=== PATIENT | female | born 1950 | race Caucasian/White ===

== ENCOUNTER → 2021-08-04 00:01 | Emergency (ER) | payer OTHER, BC ==
[~2021-08-04] VITALS: Ht 157.5 cm; Wt 84.8 kg
[~2021-08-04 00:01] MED LIST: ASA81BEC PO; ATORVASTATIN CA80 MG PO; COREG12.5 MG PO; FLOMAX0.4 MG PO; FLONASE 0.05%50 MCG NASAL; GABAPENTIN100 MG PO; IPRAT-ALBUT 0.5-3 ML INH; PROAIR HFA8.5 GM INH; SEROQUEL 25 MG25 M1 PO; SERTRALINE HCL100 MG PO; VITAMIN B-121000 MC2 IM
[2021-08-04 18:07] LABS: HEMOGLOBIN 9.8 gm/dL (12.0-15.0); MCH 29.7 pg (26.0-34.0); MCHC 33.7 g/dL (28.0-37.0); MCV 88.3 fL (80.0-100.0); RBC 3.29 mil/uL (4.20-5.00); RDW 14.4 % (10.5-14.5); WBC 11.4 thou/uL (4.0-11.0)
[2021-08-04 18:27] LABS: CALCIUM 8.3 mg/dL (8.5-10.1); CREATININE 0.8 mg/dL (0.6-1.0); POTASSIUM 3.7 mmol/L (3.5-5.1)
[2021-08-04 23:26] VITALS: BP 141/45
== END ==
LOC: ER 00:01
PROVIDERS: Emergency Medicine
DX: F29 Unspecified psychosis not due to a substance or known physiological condition (principal); J44.9 Chronic obstructive pulmonary disease, unspecified; I10 Essential (primary) hypertension; E11.9 Type 2 diabetes mellitus without complications; I25.10 Atherosclerotic heart disease of native coronary artery without angina pectoris; M79.7 Fibromyalgia; M19.90 Unspecified osteoarthritis, unspecified site; Z79.82 Long term (current) use of aspirin; Z79.51 Long term (current) use of inhaled steroids; Z79.899 Other long term (current) drug therapy; Z79.891 Long term (current) use of opiate analgesic; Z88.0 Allergy status to penicillin; Z88.8 Allergy status to other drugs, medicaments and biological substances; Z88.6 Allergy status to analgesic agent; Z88.1 Allergy status to other antibiotic agents; Z91.041 Radiographic dye allergy status

== ENCOUNTER 2021-08-04 18:58 | Inpatient (IN) | payer OTHER, BC ==
[~2021-08-04] VITALS: Ht 157.5 cm; Wt 90.3 kg
[2021-08-05] VITALS: BP 137/57
--- NOTE | 2021-08-05 02:30 | NUR ---
Pt was admitted to [facility] on 08/04 at 2338. Pt was cooperative with admission process. Vital signs were obtained and within normal limits. Skin assessment was performed; results were unremarkable. During admission interview pt was hyperverbal, overinclusive, and tangential. Pt was mostly foused on somatic complaints. Pt stated she had a DPOA, but Dr. Gee notified RN that paperwork for DPOA has not been verified and pt would need to sign consent for treatment.
[2021-08-05 06:09] LABS: CHOLESTEROL 150 mg/dL (<200); HDL CHOLESTEROL 52 mg/dL (>40); LDL CHOLESTEROL 81 mg/dL (<100); TC:HDL 2.9 Ratio (Not establshd); TRIGLYCERIDE 86 mg/dL (<150); VLDL 17 mg/dL (<40)
[2021-08-05 06:13] LABS: SERUM ASSESSMENT Clear
[2021-08-05 09:36] VITALS: BP 149/73
[2021-08-05 11:56] VITALS: BP 149/73
--- NOTE | 2021-08-05 17:17 | NUR ---
Magnolia was alert and oriented x4 this shift, although when asked specific questions pt goes into much detail that it is difficult to understand pt's thought process at first, but she eventually circles around to the correct answer. Her thought process is tangential and has flight of ideas. She expressed grief regarding the loss of her late from October of 2013 and states she never grieved properly and became tearful when discussing this. She met with the Mutuel [employer] and filled out DPOA paperwork, listing her son Adalberto as her DPOA. She expressed wishes to meet her latest Terrell, in [facility], but stated "I'm Bahai so I would never do that to myself because I believe I wouldn't go to [facility]". She stayed isolative to her room and made some paranoid comments and stated "I know I'm paranoid", regarding other pt's looking at her a certain way but pt eventually changed and came to the dayroom and watched football which pt really enjoyed. Pt has some edema to her BLE and was educated to keep her feet elevated; pt is currently sitting in a go chair with her feet elevated. Pt ambulated with a walker this shift, without difficulty. She was calm, cooperative, and pleasant with staff and shared a lot of her life stories. Pt did not voice any physical complaints this shift, will continue to monitor.
[2021-08-05 18:29] VITALS: BP 108/46
--- NOTE | 2021-08-06 05:30 | NUR ---
Assumed care of patient at 1900. Pt calm et cooperative this shift. Took medications whole without difficulty. VSWNL. Health assessment with no abnormalities other than noted previously. Pt c/o fluid retention et "feeling pressure" in BLE et feels that she is unable to urinate completely. Bladder scan done with no residual urine noted in bladder at present time. Pt very hyperverbal and tangential this shift. Denies SI/HI/AVH at present time. BS 138 at 1855. Ambulates with assistance of walker with steady gait. Currently resting in bed with eyes closed. Will continue to monitor per unit protocol.
[2021-08-06 07:11] LABS: GLYCOHEMOGLOBIN (HGB A1C) 6.4 % (4.8-5.6)
[2021-08-06 07:30] VITALS: BP 124/46
[2021-08-06 11:53] VITALS: BP 124/46
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
--- NOTE | 2021-08-06 14:56 | NUR ---
Check in with patient. Patient was in room and expressed gratitude as she was able to walk independently. The patient was well groomed. The patient indicated being here due to having a nuerology appointment and the doctors expressing that she was in need of further therapy for her hands. The patient reported being born and raised in [place], [place] and the entire family moving to [place] in 1998. The patient has a younger sister (Shannen), an older sister (Brittany) and a step-brother (Don). The patient became emotional talking about not hearing from Don for Thanksgiving as she felt that was an indicator of him not doing well. 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 The patient graduated from high school and reports she took several college courses and probably has enough credits for a degree in accounting and business. The patient is . She again became tearful when discussing her late who passed in 2013 due to complications from a double hernia surgery. There was no history of abuse. The patient has a good relationship with her son, Adalberto. He is very protective of her. The patient is not as close to her youngest son, Brad. He has been diagnosed with bipolar. The two barely talk; however, he would come to the home and take a shower when he wasn't able to at the truck stations. He works as an over the road warehouse guard and reportedly resides out of the truck. For fun, the patient likes to sew. The patient expressed wanting to be able to return home. She acknowledges not having any live in support but feels she would be able to appropriately care for herself. The patient did express the desire to have PT to assist with walking if she is going to be living alone.
[2021-08-06 19:35] VITALS: BP 99/45
--- NOTE | 2021-08-06 21:33 | NUR ---
08/06/21 assumed care @ 1900, A&Ox4, HRRR, Breath sounds CTA bilat, ABD N x4Q bruising on ABD consisitent with abd injections for blood thinner, patient confirms this protocol, from her previous hospital stay. Bruises on AC bilat and back of hand and forearm on the left which also appear to be from IV or lab draws. Toilets self, urine output only is noted. Reports no bm today. Chats about psych meds that she wants to be on but is not, and then denies that she wants to be on it. Education provided that the is the one to give orders for psychiatric medication. Bed in low position, feet elevated as per the patient's request, will continue to monitor for safety and comfort.
[2021-08-07 06:00] LABS: ALBUMIN 2.7 g/dL (3.4-5.0); CALCIUM 8.6 mg/dL (8.5-10.1); CREATININE 1.1 mg/dL (0.6-1.0); PHOSPHORUS 3.9 mg/dL (2.5-4.9); POTASSIUM 3.1 mmol/L (3.5-5.1)
[2021-08-07 08:40] VITALS: BP 139/64
--- NOTE | 2021-08-07 10:15 | NUR ---
Assess due to new admit to [facility] with paranoia, hallucinations. PHM of DM and COPD. BG in excellent control, A1C 6.4, lipids wnl on statin. No reported wt loss, BMI 34.5. Carb control diet order and eating >75% most meals. Low nutrition risk
--- NOTE | 2021-08-07 14:51 | NUR ---
Alert and orientated X4. Denies SI/HI. Wants to be weaned off psych meds. Initially resistant to taking psych meds stating that her gave her xanax from Halloween through [facility] d/t anxiety/depression r/t to loss. Hyperverbal and fussy but remaining calm. Compliant with meds after multiple suggestions to discuss with Dr. Gee and that I would ask Dr. Gee to speak with her. Multiple requests to change wrist band. Repetitive stories, resistant to redirection. Breath sounds clear. Reg HR auscultated. Color pink with brisk capillary refill and palpable peripheral pulses. Minimal edema in feet. Brief dry. Active bowel sounds over soft, rounded abdomen. States last BM was 2 days ago.
[2021-08-07 19:30] VITALS: BP 111/47
[2021-08-07 19:47] VITALS: BP 111/47
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
[2021-08-08 02:06] LABS: GLYCOHEMOGLOBIN (HGB A1C) 6.5 % (4.8-5.6)
[2021-08-08 09:00] VITALS: BP 120/57
[2021-08-08 13:38] LABS: HEMATOCRIT 29.7 % (37.0-47.0)
[2021-08-08 13:39] LABS: HEMOGLOBIN 9.7 gm/dL (12.0-15.0)
--- NOTE | 2021-08-08 17:43 | NUR ---
"MARLYN and Dr. Roach met with the Pt concerning discharge planning. The PT stated she needed to discharge to [facility] for rehab. The Pt states that this was the plan prior to her being admitted to [facility]. The Pt stated she was told ther where holding a bed for her. MARLYN was unable to verify this information, MARLYN did call [facility], left a message for a return call. As of this not MARLYN has not recieved call from [facility] on the matter. MARLYN and Dr. Roach were also able to speak with the Pt's son, Adalberto [phone]. Adalberto informed the Pt does have acess to her home. Pt is able to use the [employer] mentor [employer] invest[employer] door code to enter the home. Adalberto shared concerns that the Pt's home was not safe due to stairs and he felt the Pt needed rehab or someone in the home to assist. A family meeting was set for 08/09/2021 @ 1500. MARLYN will continue to follow"
[2021-08-08 19:30] VITALS: BP 113/41
[2021-08-08 19:34] VITALS: BP 113/41
--- NOTE | 2021-08-08 22:52 | NUR ---
08/08/21 @ 1900 in her room in bed , awakens to voice, Cooperated with assessment, HRRR, Lungs CTA bilat, ABD Nx4Q. Had a large BM, but patient did not follow the instructions to use the hat to collect BM. Will monitor more closely in hopes of collecting sample for Occult blood. A&Ox4, although gives the date as Aug 09, 2021, and that is tomorrows date. +1Edema noted to bilat lower extremities, pedal pulses present. Denies SI/HI, Denies depression, reports has anxiety over the continuing changing guidelines for covid safety. In bed with bed in low position and locked, will continue to round q12 minutes for patient safety and comfort.
[2021-08-09 06:27] LABS: CALCIUM 8.3 mg/dL (8.5-10.1); CREATININE 0.9 mg/dL (0.6-1.0); MAGNESIUM 1.5 mg/dL (1.8-2.4); POTASSIUM 4.5 mmol/L (3.5-5.1)
--- NOTE | 2021-08-09 09:28 | NUR ---
08-09-2021--799--Spoke shortly to patient and told her I would come back to talk to he later. She can talk non-stop. Explained I needed to make a phone call and she stated "do you promise you'll come back?". I told her "yes". 08-09-2021--849--Went back to talk to patient. She stated "You came back." I told her "of Course I did. I told you I would." Patient can talk about almost any topic (even when you change the subject in the middle of her talking about one topic)--Non--stop. Once again I had to use an excuse to stop conversation. And again she requested assurance that I would ome back and talk to her later. Patient appears very insecure and requires verbal reassurance that things will occur. Patient also told me she has never been dx'd with bipolar and she really feels a lot better now and is ready to get out.
--- NOTE | 2021-08-09 10:12 | NUR ---
PATIENT CARE ASSUMED AT 0700, PATIENT SITTING ON THE LUCITA CHAIR, ALERT AND ORIENTED X3, PATIENT IS CALM AND PLEASANT WITH CARE, TOOK MEDICATION WHOLE WITHOUT ANY PROBLEM, PATIENT LIKE TO KNOW ALL THE NAME OF MEDICATION TAKEN AND WHAT THERE ARE FOR. ASSESSMENT COMPLETED WITH ACTIVE BOWEL SOUND, LUNGS CLEAR, REG HR, SKIN INTACT, +1 EDEMA ON THE LEGS, PATIENT AMBULATE WITH A WALKER, ATTENDS GROUPS AND PATICIPATED, ABLE TO VERBALIZE NEEDS, FALL PRECAUTION IN PLACE, PATIENT DENIES SI/HI, WILL CONTINUE TO MONITOR PATIENT FOR SAFETY AND BEHAVIOU.
--- NOTE | 2021-08-09 17:33 | NUR ---
MARLYN and Dr. Gee participated in a family meeting with the Pt and her son/DPOA, Adalberto. During the meeting the Pt was hyperverbal and manic. The Pt was cried several times through out the meeting. MARLYN attempted to redirect the Pt several times back to discharge planning. The Pt was unable to be redirected. THe meeting was ended. Another family meeting will be scheduled for early next week
[2021-08-09 19:04] VITALS: BP 105/41
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
[2021-08-10 08:49] VITALS: BP 138/46
[2021-08-10 10:19] VITALS: BP 138/68
--- NOTE | 2021-08-10 12:06 | NUR ---
RESUMMED CARE FROM OVERNIGHT SHIFT THIS AM, PATIENT ALERT ORIENTED TIMES 4. PATIENT ATE BREAKFAST TOOK MEDICATION WITHOUT INCIDENCE. PATIENT DENIES SI/HI/AH/VH AT PRESENT. PATIENTS ABDOMEN SOFT BOWEL SOUNDS PRESENT, PATIENTS LUNGS CLEAR. PATIENT CALM COOPERATIVE PARTICIPATES IN GROUPS; WILL CONTINUE TO MONITOR PATIENT FOR SAFETY AND BEHAVIORS.
--- NOTE | 2021-08-10 13:48 | NUR ---
RT Progress Note- Magnolia has been active in both the milieu and recreation therapy groups since her admission. She enjoys interacting with peers and socializing. She continues to display pressured and hyper active speech; manic like behaviors but has not shown aggression or agitation. RECEIVER DISPATCHER will continue to encourage patient participation.
[2021-08-10 17:23] LABS: HEMATOCRIT 26.3 % (37.0-47.0); HEMOGLOBIN 8.9 gm/dL (12.0-15.0); MCHC 33.9 g/dL (28.0-37.0); MCV 88.5 fL (80.0-100.0); RBC 2.98 mil/uL (4.20-5.00); RDW 14.4 % (10.5-14.5); WBC 7.8 thou/uL (4.0-11.0)
[2021-08-10 17:41] LABS: ALBUMIN 2.6 g/dL (3.4-5.0); CALCIUM 8.5 mg/dL (8.5-10.1); POTASSIUM 4.3 mmol/L (3.5-5.1); TOTAL BILIRUBIN 0.4 mg/dL (0.2-1.0); TOTAL PROTEIN 5.9 g/dL (6.4-8.2)
[2021-08-10 17:42] LABS: APTT 25.4 Seconds (24.5-32.8); D-DIMER 0.47 ug/mLFEU (0.19-0.50); INR 0.93; PROTIME 10.2 Seconds (10.5-12.1)
[2021-08-10 19:04] VITALS: BP 96/46
--- NOTE | 2021-08-11 05:52 | NUR ---
Assumed care of patient at 1900. Pt calm et cooperative this shift albeit hyperverbal with the staff most of shift. Took medications whole without difficulty. Isolated in room most of shift. Ambulates to et from the restroom ad cecilio with assistance of walker with steady gait. Pt c/o right knee pain this shift et was given Tylenol 650mg PRN at 0130. Reassessment found the patient resting with eyes closed. Patient denies SI/HI/AVH at present time. Patient had moderate soft bowel movement which was collected for occult blood analysis per orders. Patient currently resting in bed with eyes closed. Will continue to monitor per unit protocol.
--- NOTE | 2021-08-11 09:42 | NUR ---
Alert and orientated X4. Calm, cooperative and compliant. Denies SI/HI. Breath sounds clear t/o. Reg HR auscultated. Color pale pink with brisk capillary refill and palpable peripheral pulses. Minimal pedal edema. Large amt yellow urine per toilet. Active bowel sounds over soft, rounded abdomen. States she had BM yesterday. Ambulates with regular, steady gait with walker. Currently participating in group, no s/o distress.
[2021-08-11 10:19] VITALS: BP 135/48
[2021-08-11 17:00] VITALS: BP 115/57
[2021-08-11 21:17] VITALS: BP 117/73
--- NOTE | 2021-08-12 04:06 | NUR ---
Magnolia was alert and oriented x4 this shift. She presented in her room at the start of the shift and remained in her room throughout the night. She expressed she was tired and was going to go to bed early, but was restless throughout the night and woke up multiple times. She was calm, cooperative, and pleasant, although hyperverbal at times and would tell very detailed stories in the middle of the night when she would wake up. She was medication compliant, without difficulty. She denied SI/HI/MARY and remained safe throughout the night. She woke up c/o pain to her right leg and used her ice pack, then about an hour later asked for tylenol; tylenol given at 0100 with effectiveness. Pt reached her fluid restriction of 1200 mL with HS medications. She was provided with mouth swabs and some water so that pt could swab her mouth if it became try throughout the night. Pt has been compliant with her fluid restriction and appears understanding of the situation. Will continue to monitor.
[2021-08-12 09:40] VITALS: BP 121/48
--- NOTE | 2021-08-12 12:40 | NUR ---
Assumed pt care at 0700. pt is alert and oriented x4. Calm and cooperative with care. Assessments completed, vss. active bowel sound. Denies si/hi, denies pain. Took meds whole, no difficulty noted. Ambulates with a walker. Continent of bowel and bladder at this time. Makes needs known to staff. PT is high fall risk. Fall precaution in place. Med education completed per pt request. Meds administered as scheduled. At this time pt is in the day room socializing. Will continue to monitor.
[2021-08-12 19:43] VITALS: BP 103/44
--- NOTE | 2021-08-13 05:27 | NUR ---
Assumed care of patient at 1900. Pt calm et cooperative this shift. Took medications whole without difficulty. VSWNL. Health assessment with no abnormalities noted at present time. Was given PRN Tylenol, Zofran, et Seroquel this shift with efficacy. Spent early part of shift socializing with peers in dayroom. Pt denies any SI/HI/AVH at present time. Hyperverbal this shift with both staff and peers. Often close to tears when ruminating about past relationships. Currently resting in bed with eyes closed. Will continue to monitor per unit protocol.
[2021-08-13 05:58] LABS: HEMATOCRIT 23.4 % (37.0-47.0); MCHC 34.1 g/dL (28.0-37.0); MCV 88.2 fL (80.0-100.0); RBC 2.66 mil/uL (4.20-5.00); RDW 14.4 % (10.5-14.5); WBC 5.6 thou/uL (4.0-11.0)
[2021-08-13 06:11] LABS: CALCIUM 8.4 mg/dL (8.5-10.1); POTASSIUM 3.2 mmol/L (3.5-5.1)
[2021-08-13 09:29] VITALS: BP 137/56
--- NOTE | 2021-08-13 09:47 | NUR ---
Patient has been in the dayroom all morning. She had a good appetite at breakfast. Patient has been hyperverbal with staff and patients. She has been cooperative this morning. She took her morning medications whole with no difficulty, educated on each medication she recieved. Patient requested to not take her scheduled doce of colace, due to having loose stools. She uses a walker when ambulating, she has been steady. Patient participated in the monring group session. She denies having pain, or thoughts of SI/HI. She is currently in the dayroom watching TV, will continue to monitor for further changes.
[2021-08-13 19:17] VITALS: BP 109/45
--- NOTE | 2021-08-14 01:11 | NUR ---
At onset of restaurant shift leader pt was sitting in day room socializing with a female peer. This shift pt was alert and oriented x3; insight into situation is limited. Pt was hyperverbal and very tangential when speaking with RN. Pt shared that she feels god is punishing her because most of her loved ones are gone, but she is still living. Pt talked about being with her when he passed. Pt was labile during conversation and was tearful. Pt was compliant with medication and vital signs. Pt was observed talking to herself in her room, but pt stated she is talking to god. Fall precautions are in place. Will continue to monitor. Pt complained of feeling "fibromyalgia pain" in her legs. Pt was provided with an ice pack.
[2021-08-14 04:00] LABS: HEMATOCRIT 23.9 % (37.0-47.0); HEMOGLOBIN 7.9 gm/dL (12.0-15.0); MCH 29.3 pg (26.0-34.0); MCHC 33.2 g/dL (28.0-37.0); MCV 88.3 fL (80.0-100.0); RBC 2.71 mil/uL (4.20-5.00); RDW 14.3 % (10.5-14.5); WBC 5.4 thou/uL (4.0-11.0)
[2021-08-14 04:17] LABS: CALCIUM 8.8 mg/dL (8.5-10.1); CREATININE 1.3 mg/dL (0.6-1.0); POTASSIUM 3.4 mmol/L (3.5-5.1)
[2021-08-14 04:18] LABS: % SATURATION 15 % (20-39); IRON 27 ug/dL (50-170); TIBC 176 ug/dL (250-450)
[2021-08-14 04:51] LABS: FOLIC ACID 10.3 ng/mL (8.6-58.9)
[2021-08-14 08:35] VITALS: BP 130/51
--- NOTE | 2021-08-14 09:49 | NUR ---
Followup: remains on SBH. Eating very well. Wt up 10 lb. BG controlled, folate, B12 are wnl. Continues to present at low nutrition risk
[2021-08-14 12:18] VITALS: BP 130/51
--- NOTE | 2021-08-14 16:44 | NUR ---
Magnolia was alert and oriented x4 this shift. She presented as very anxious this morning and became tearful as she was upset that a staff member questioned her regarding her "noodle" that she uses to manager security and safety her utensils. Pt was given reassurance and emotional support as pt was pretty worked up about this and appeared very focused on this, despite reassurance that she did not do anything wrong. Pt's thought process is tangential and she continues to be hyperverbal and very detail oriented. She was labile throughout the day and tearful at times. She denied SI/HI/MARY and remained safe on the unit throughout the day. She was medication compliant, taking pills whole without difficulty. Her last BM was yesterday and due to Hgb trending downward, a new order for an occult stool was placed. A hat was placed in pt's toilet to obtain stool sample but pt has not yet gone since order was placed. Pt's colace was held this morning as pt stated she has been having diarrhea. Pt did not voice any physical complaints this shift and remains on high fall risk precautions as pt has had a recent fall and ambulates using a walker. Will continue to monitor.
[2021-08-14 21:02] VITALS: BP 110/44
--- NOTE | 2021-08-14 23:13 | NUR ---
At onset of audit associate pt was resting awake in bed. This shift pt was alert and oriented x4. Pt was hyperverbal and labile when speaking with staff. Pt easily becomes tearful during interactions. Pt was compliant with vital signs and medications. Pt reported that she did not sleep well last night and did not sleep during the day, so she believes she will sleep well tonight. Pt is aware a occult stool sample is needed. Pt stated she has not had a bowel movement yet to provide sample. Pt denied SI, HI and AVH. During med pass, pt has RN go over each medication. Affect was broad. Pt appeared anxious at times, but overall was pleasant. Fall precautions are in place. Will continue to monitor.
[2021-08-15 07:20] VITALS: BP 113/39
[2021-08-15 11:23] VITALS: BP 118/45
[2021-08-15 12:14] LABS: HEMATOCRIT 27.1 % (37.0-47.0)
--- NOTE | 2021-08-15 14:23 | NUR ---
Alert and orientated X4. Calm, cooperative and compliant. Denies SI/HI. Hyperverbal at times. Breath sounds clear. Reg HR auscultated. Color pale pink with brisk capillary refill and palpable peripheral pulses. + 1 edema in lower legs. Active bowel sounds over soft, rounded abdomen. Independent with voiding. Ambulates with regular, steady gait with walker. Currently being showered by HIGH LIFT OPERATOR.
--- NOTE | 2021-08-15 15:40 | NUR ---
MARLYN and Dr. Roach participated in phone call to the Pt's DPOA/son, Adalberto. Adalberto informed he has been cleaning out the Pt's home. Adalberto stated that the Pt horded and he wanted to clear it out to make safer for the Pt to return. Bert was informed the Pt did not meet criteria for inpt skilled rehab. It was recommended that the Pt would benifit from assistance in the home from friend, family or home health aide. Bert informed Pt was unable to afford in home assistance and that he lives 3 hours away. Assisted living was discussed. Bert knows that assisted living would not be immidiate but he could talk to the Pt about the matter. Pt will need follow up with a psychiatrist. There were no other questions or concerns during this meeting. A follow up phone call will be held 08/18/2021 @ 1300.
--- NOTE | 2021-08-15 16:36 | NUR ---
Patient care resummed, patient located in bed and was awoken by staff for breakfast. Patient is A&O*4, lung sounds clear;unlabored although diminished in bilateral bases; abdomen is soft, nondistended with bowel sounds present*4; +1 pitting edema in BLE, abdomonal brusing noted, and pale in color. Patient has been calm and cooperative with staff throughout the day, hyperverbal at times, and fixated on past times. Patient on a 1,200mL fluid restriction, V/S hypotensive @ 113/39 at 0800 and 118/45 @ 1115. Patient labs ordered and reviewed. Denies SI/HI/AVH, anxiety, depression, and pain. Patient Is cont. of B&B, presents with a steady gait with walker when ambulating. Fall precautions are in place, will continue to monitior patient for safety and behaviors.
--- NOTE | 2021-08-15 16:54 | NUR ---
SW completed a SLUMS with Pt. Pt scored
[2021-08-15 21:42] VITALS: BP 131/55
--- NOTE | 2021-08-16 04:20 | NUR ---
08-15-21 CARE TRANSFERRED 0 OBSERVED PT SITTING IN DAY ROOM. LATER PT AAOX4, VSS, RR EVEN AND NONLABORED ON RA, LUNGS CLEAR AND DIMINISHED, HT RR, ABD SOFT AND ACTIVE. PT DENIES PAIN AND SI/HI/VAH. PT PRESENTS FUSSY, HYPERVERBAL WITH DISORGANIZED THOUGHTS, BUT HAS REMAINED COOPERATIVE. OBSERVED PT SHUFFLING GAT WITH WALKER, PT BED WAS ADJUSTED FOR COMFORT. PT WILL CONTINUE TO BE MONITOR PER [facility] PROTOCOL.
[2021-08-16 08:26] VITALS: BP 128/44
--- NOTE | 2021-08-16 08:49 | EKG ---
[address] [address] ELECTROCARDIOGRAM REPORT Name: JOSE PETER Room #: [facility] ADM IN M.R.#: [id number] Admission: 08/04/21 Attend Phys: Mart Gee DO Discharge: Date of : 52 Report #: [id number] [facility] Test Date: 2021-08-15 Test Time: 18:33:40 Pat Name: JOSE PETER Department: Room: [facility] Gender: F Labor Crew Supervisor: FSCHFERN : 1950 Requested By: Mart Gee Order Number: [id number] MD: Catrachito Grossman Measurements Intervals [place] Rate: 89 P: 1 NV: 125 QRS: 18 QRSD: 85 T: 55 QT: 355 QTc: 432 Interpretive Statements Sinus rhythm Normal tracing No previous ECG available for comparison Electronically Signed On 08-16-2021 8:49:48 MAGAZINE FILLER by Catrachito Grossman [email or web address] <ELECTRONICALLY SIGNED> By: Catrachito Grossman MD, [facility] 08/16/21 0849 1833 1833 Catrachito Grossman MD, FACC /EPI
--- NOTE | 2021-08-16 17:52 | NUR ---
Referral for SNF faxed to [facility] [place]
--- NOTE | 2021-08-16 17:53 | NUR ---
Patient care resummed, patient in bed resting awhile woken for breakfast. Patient has been calm and cooperative today although hyperverbal with disorginzed thoughts. A&O*4; Lung sounds clear bilaterally although diminshed; abdomen soft;nondistended with bowel sounds present*4; VSS; medication and meal compliant; 1,000ml of fluids given of the 1,200ml restriction. Patients gait noted to be steady with a walker although visualized shuffling today. Patient participated in groups/meals and PT today without complication. Denies SI/HI/AVH, pain, anxiety, and depression. Patient did voice concern about some dizziness when standing; DRY FOLDER CLOTH proceed with Orthostatic V/S: Sitting: BP: 128/44 HR: 94 O2: 94% T: 95.5 Lying: BP: 153/85 HR: 105 Standing: BP: 95/55 HR: 70 Fall precautions are in place will continue to monitior for safety and behaviors.
[2021-08-16 19:38] VITALS: BP 143/48
--- NOTE | 2021-08-16 19:48 | NUR ---
NOTES AND ASSESMENTS REVIEWED FOR 7AM-7PM SHIFT-IN AGREEMENT
--- NOTE | 2021-08-16 22:08 | NUR ---
At onset of business technology analyst pt was sitting in day room, socializing with a female peer. This shift pt was alert and oriented x3. Insight into situation is limited. Pt was compliant with vital signs and medications. RN held colace per pt's request. Pt was overall calm, pleasant and cooperative. During conversation with RN pt stated she was upset because she believes Dr. Gee did not see her today. Pt stated Dr. Gee and her son are working together "to have me permanently put away" in a mental instition. Pt told RN to not tell Dr. Gee she believes this because she does not want her medication increased. Pt denied SI, HI and AVH. Fall precautions are in place. Will continue to monitor.
[2021-08-16 22:41] VITALS: BP 136/48
[2021-08-17 07:30] VITALS: BP 123/63
[2021-08-17 09:36] VITALS: BP 123/63
--- NOTE | 2021-08-17 13:28 | NUR ---
RT Progress Note- Magnolia is consistently present in the milieu and recreation therpay groups and participates well. Magnolia enjoys sharing stories and can talk for long periods of time, requiring refocusing in group settings. Overall her mood has stabilized and she is less labile compared to the common crying spells she was displaying last week. STRAP BUCKLER will encourage patient participation throughout her admission.
[2021-08-17 18:42] VITALS: BP 105/50
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
--- NOTE | 2021-08-18 04:36 | NUR ---
08-17-21 CARE TRANSFERRED 1899 OBSERVED PT SITTING IN DINING ROOM TALKING WITH PEER. LATER PT AAOX4, VSS, RR EVEN AND NONLABORED RA, LUNGS CLEAR AND DIMINISHED, HT RR, ABD SOFT/ACTIVE/NONTENDER. PT DENIES SI/HI AND REPORTS PAIN IN LOWER BACK SCORES 5 ON 0-10 SCAE. PT HYPERVERBAL WITH MULTIPLE DEMANDS BUT HAS BEEN PLEASANT WITH REQUEST, PT COOPERATIVE DURING NURSING ASSESSMENT. DURING MEDICATION ADMIN PT HAD NO DIFFICULTIES TAKING MEDICATION WHOLE WITH WATER. PT BED WAS ADJUSTED FOR COMFORT. UPON REASSESSMENT OF PAIN NOTED PT RESTING WITH EYES CLOSED. PT WILL CONTINUE TO BE MONITOR PER [facility] PROTOCOL.
[2021-08-18 14:50] VITALS: BP 135/50
--- NOTE | 2021-08-18 15:14 | NUR ---
Patient care resummed; patient located in her room resting comfortably. A&O*4 with intermintent confusion, lung sounds clear bilaterally;unlabored, abdomen soft;no distention noted with bowel sounds present*4, ambulates with a walker although gait is unsteady at times; medication/meal compliant; on 1,200mL fluid restriction patient within limits of restriction today; Hyperverbal throughout the day, calm, cooperative and pleasent. VSS; fall precautions in place; Denies SI/HI/AVH, Anxiey, Pain, and depression. Will continue to monitior patient for safety and behaviors.
--- NOTE | 2021-08-18 16:21 | NUR ---
Referral faxed to [facility]
[2021-08-18 19:13] VITALS: BP 112/48
--- NOTE | 2021-08-19 05:50 | NUR ---
Assumed care of pt at 1900. Pt calm et cooperative this shift. Took medications whole without difficulty. Ambulates the halls ad cecilio wth assistance of walker with steady gait. Went to bed early this shift et states that she is "more tired than usual today". VSWNL. Health assessment with no abnormalities noted at present time. PRN Tylenol 650mg given at midnight for generalized pain. Reassessment revealed pt resting with eyes closed. No further c/o for the rest of the noc. Pt denied SI/HI/AVH at present time. Currently resting in bed with eyes closed. Will continue to monitor per unit protocol.
[2021-08-19 09:48] VITALS: BP 120/41
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
[2021-08-19 16:05] VITALS: BP 102/49
[2021-08-19 19:17] VITALS: BP 84/45
--- NOTE | 2021-08-20 05:32 | NUR ---
Assumed care of pt at 1900. Pt calm et cooperative this shift. Took medications whole without difficulty. Ambulates the halls ad cecilio with assistance of walker with steady gait. Spent early part of shift socializing with peers in dayroom. Less hyperverbal than previous encounters with pt. VSWNL. Health assessment with no abnormalities noted at present time. Pt denies SI/HI/AVH at present time. Currently resting in bed with eyes closed. Will continue to monitor per unit protocol.
[2021-08-20 10:21] VITALS: BP 121/50
[2021-08-20 11:50] VITALS: BP 121/50
--- NOTE | 2021-08-20 17:12 | NUR ---
Assumed pt care this morning from overnight shift. Client was in activity area resting and watching tv during this time. Client presented pleasant and talkative during assessment and was oriented 4x. Client denied any anxiety and depression during assessment. Client also denied any visual and audio hallucinations, stating that she has not had those in weeks. Client also denied any suicidal or homicidal intent, stating that she is unsure of why she is asked that question as she has "never been suicidal in [my] life." Bowel sounds were present, with last BM 08/20/21. Lung sounds were clear and slightly diminished- client is on breathing treatments several time a day to help with this. Client did not have any concerns at time of assessment. She voiced some pain shortly after assessment and was given prn tylenol to help with this which provided complete pain relief. At this time, client asked about her son visiting her tomorrow. Client was informed that he son stated that he was out of town until Saturday, but that she would be notified if that changed. Client voiced concerns that she would continue to stay at facility due to son's involvement. Client was assured at this time that family meetings were planned before discharge and that her input would be valued as well. Client had no further concerns at this time. All medications for this shift given and tolerated well. No concerns at this time.
[2021-08-20 20:05] VITALS: BP 104/32
--- NOTE | 2021-08-21 02:22 | NUR ---
PATIENT CARE WAS RESUMED AT 1900. SHEIS ALERT AND ORIENTED X3. LUNGS ARE CLEAR BS ACTIVE X4 QUADS. SHE IS CONTINENT OF B WEL AND BLADER AND SHE WAS RESTING IN BED. SHE TOOK HER MEDS WHOLE. ON FLUID RESTRICTON. SHE DENIES PAINS/SI/AVH/HI. BED IS LOW AND LOCKED.
[2021-08-21 09:06] VITALS: BP 117/48
--- NOTE | 2021-08-21 09:06 | NUR ---
Please indicate amount of fluid restriction needed in pts diet order
--- NOTE | 2021-08-21 09:06 | NUR ---
Followup: eating 100% meals. Note on fluid restriction due to hyponatremia, Na 135 however specific amount not specified. Need to clarify with physician and indicate in pts diet order. Otherwise low nutrition risk
--- NOTE | 2021-08-21 10:12 | NUR ---
TEARFUL DURING AM RT GROUP OTHERWISE CALM/COOPERATIVE-REMAINS MILDLY HYPER VERBAL AND TANGENTIAL. DENIES SI/SH/HI. SOCIAL WITH FEMALE PEER-STRUCTURES FREE TIME READING MAGAZINE OR DOING WORD SEARCHES. GAIT STEADY WITH USE OF ROLLER WALKER.DENIES PAIN/DISCOMFORT
--- NOTE | 2021-08-21 17:32 | NUR ---
Pt has been accepted at [facility] for SNF to home. Discharge was set for 08/22/2021 @ 1100. Pt will be transported via [facility] . SW did inform the Pt of this information. Also the Pt's KEY Noel was informed.
[2021-08-21 20:11] VITALS: BP 132/39
--- NOTE | 2021-08-21 22:57 | NUR ---
PATIENT IN DAY ROOM WATCHING TV. SHE IS AAOX4. CALM AND COOPERATIVE. STATES THAT SHE IS SUPPOSED TO DISCHARGE IN THE AM. SHE IS ABLE TO WALK UNDER HER OWN POWER AND IS STABLE. SHE IS COMPLIANT WITH ALL OF HER MEDICATIONS. DENIES PAIN OR NEEDS. VSS. WENT TO BED AROUND 1999. WILL CONTINUE TO MONITOR FOR CHANGES IN PATIENT STATUS.
[2021-08-22 09:15] VITALS: BP 122/64
[2021-08-22 09:59] VITALS: BP 119/31
[2021-08-22] MEDS ORDERED: CLARITIN10 M2 PO (10:31)
[2021-08-22] MEDS ORDERED: COZAAR 50 MG TA50 M1 PO (10:32)
[2021-08-22] MEDS ORDERED: LIPITOR40 MG PO (10:32)
[2021-08-22] MEDS ORDERED: DIVALPROEX SOD500 M1 PO (10:33)
[2021-08-22] MEDS ORDERED: GABAPENTIN 100100 MG PO (10:33)
[2021-08-22] MEDS ORDERED: LASIX 40 MG TAB40 M1 PO (10:34)
[2021-08-22] MEDS ORDERED: SEROQUEL 50 MG50 MG PO (10:34)
[2021-08-22] MEDS ORDERED: FOLIC ACID1 MG PO (10:35)
[2021-08-22] MEDS ORDERED: SINGULAIR 10 MG10 M1 PO (10:35)
[2021-08-22] MEDS ORDERED: METFORMIN HCL500 MG PO (10:36)
[2021-08-22] MEDS ORDERED: PROTONIX 20 MG20 M1 PO (10:36)
[2021-08-22] MEDS ORDERED: ACIDOPHILUS1 EAC4 PO (10:37)
[2021-08-22] MEDS ORDERED: COLACE 100 MG100 MG PO (10:37)
--- NOTE | 2021-08-22 11:38 | NUR ---
Magnolia was alert and oriented x4 this shift. She presented as calm, cooperative, and appropriate. She was provided a set of pajama pants and a t-shirt to wear at D/C as pt only had a night gown. Pt denied SI/HI/MARY and remained safe on the unit prior to D/C. She ambulated with a walker without difficulty. D/C paperwork was reviewed with pt as well as a copy sent with her. Report was called to nurse Mejia at [facility], all questions answered, and number provided in case she had any further questions. Pt left the unit at 1123 and drove off with [facility] at 1130. Pt was brought to the front enterance via w/c, this RN, and two [employer] employees. Pt was medication compliant prior to discharge, without difficulty.
--- NOTE | 2021-08-23 09:26 | D ---
[facility] [place] [address] DISCHARGE SUMMARY Name: JOSE PETER Room #: 520B-B DIS IN M.R.#: [id number] Admission: 08/04/21 Attend Phys: Mart Gee DO Discharge: 08/22/21 Date of : 52 Report #: [id number] THIS REPORT FOR: cc: FAM - Family physician unknown FAM - Family physician unknown Mart Gee DO ~ DATE OF SERVICE: 08/22/2021 INPATIENT PSYCHIATRIC DISCHARGE SUMMARY ATTENDING PSYCHIATRIST: Mart Gee DO. HOSPITALIST AT TIME OF DISCHARGE: Mart Antonio MD DISCHARGE DIAGNOSES: Bipolar 1 disorder, most recent episode manic, severe with psychotic features, much improved. MEDICAL COMORBIDITIES: As follows: Obesity, anemia, COPD, rheumatoid arthritis, diabetes mellitus type 2, gastroesophageal reflux disease, hypertension, hyperlipidemia, and urinary incontinence. The patient is discharging to [facility]. Psychiatric and medical care by receiving facility. Patient's discharge diet is an 1800 calorie diabetic diet. The patient uses a rolling walker to ambulate. The patient is going for physical and occupational therapy as she has significant stairs and is currently limited in her ability to care for herself. DISCHARGE MEDICATIONS: Tamsulosin 0.4 mg oral daily for incontinence, Flonase 1 spray each nostril daily for allergic rhinitis, albuterol sulfate 1 puff q. 6 hours p.r.n. for wheezing/shortness of breath, aspirin 81 mg oral daily for heart protection, Coreg 12.5 mg oral b.i.d. for hypertension, ipratropium and albuterol sulfate nebulizers 3 mL inhalation q. 6 hours while awake, loratadine 10 mg oral daily for allergic rhinitis, atorvastatin 40 mg oral daily for hyperlipidemia, losartan 50 mg oral daily for hypertension and kidney protection, Depakote sodium ER 1000 mg oral at bedtime for mood stabilization, gabapentin 100 mg oral 3 times a day for neuropathic pain, Seroquel 125 mg oral 3 times daily for psychosis, taper of Seroquel should be considered at 1 month's time if bipolar symptoms are well controlled, Lasix 40 mg oral daily for hypertension, montelukast 10 mg oral daily for asthma allergies, lactobacillus capsule oral daily for bowel health, docusate sodium 100 mg oral twice daily for bowel motility, hold if diarrhea, pantoprazole 40 mg oral daily for GERD, metformin 1000 mg oral twice daily for diabetes mellitus, folic acid 1 mg oral daily for supplementation, recommend daily Accu-Cheks to ensure blood sugar stability. LABORATORY DATA: Significant laboratories this admission, hematology last done [address] [address] DISCHARGE SUMMARY Name: JOSE PETER Room #: 520B-B [facility] IN M.R.#: [id number] Admission: 08/04/21 Attend Phys: Mart Gee DO Discharge: 08/22/21 Date of : 52 Report #: [id number] on 08/15, H and H 9.0 and 27.1. White count from 08/14 of 5.4, platelet count 265. Her hemoglobin had been as low as 7.9 this admission. Coags from 08/10, PT 10.2, INR 0.93, PTT 25.4. Fibrinogen 438. D-dimer 0.47. On 08/14, sodium 135, potassium 3.4, chloride 98, bicarbonate 32, anion gap 5, BUN 21, creatinine 1.3, estimated GFR 41, glucose 94. A1c 6.5 on 08/07. Serum osmolality on 08/10 was 266. Phosphorus 3.9 on 08/07. Magnesium 1.5 on 08/09. Iron panel was done, and she was 27 on 08/14, TIBC 176 on 08/14. Ferritin was normal at 102. AST 38, ALT 44, alkaline phosphatase 94, all on 08/10. Lipids were within normal limits. B12 level fairly normal at 587. Folate borderline low at 10.3. Urine osmolality 08/11 was 162, urine sodium was 32. Depakote level on 08/16 was 271. COVID PCRs were negative on 08/04, 08/07, 08/09, and 08/16. EKG this admission done on 08/15 showed QTc 432, NC interval 125 milliseconds, rate 89 in sinus rhythm. REASON FOR ADMISSION: A 70-year-old obese female sent over from [facility]. She has been going back and forth between the [facility]. There was concern that prednisone had triggered a manic episode. In any event, she was very talkative, flight of ideas, having visual hallucinations when she was admitted. HOSPITAL COURSE: The patient was admitted to Geriatric Psychiatry Unit. When I had initially placed the patient on Seroquel regime, Depakote was added for mood stabilization. It took the patient a fair amount of time for her symptoms to mitigate. The patient does have some physical limitations. We spent some extra time having physical and occupational therapy evaluate her as well as do the common evaluation of living skills. Ideally, the patient will be a candidate for CCRC even in assisted living, but there are significant financial limitations. The patient does not have a dementia. We had several discussions with her son, Bert who lives in [facility]. He has been renovating her house, getting things cleaned out, sounds like she may have a hoarding problem at home. The best we could do was to get her correction stay, take it more time for her to strengthen up and her home to be made functional on 1 level as the stairs are challenge. On day of discharge, the patient was not suicidal or homicidal. PHYSICAL EXAMINATION: VITAL SIGNS: On day of discharge, temperature 36.0, pulse 88, respirations 18, BP 119/31, O2 sat 95%. MUSCULOSKELETAL: Assisted gait with walker, wearing glasses. Unkempt appearance. MENTAL STATUS EXAMINATION: Well-developed, age-appearing female. Attention and concentration fair. Speech normal rate, volume, and tone. Thought Process: Linear and goal directed. Thought content focused on discharge. Mood and affect okay, but irritable, which I think is her baseline. [facility] [address] [place] [address] DISCHARGE SUMMARY Name: JOSE PETER Room #: 520B-B DIS IN M.R.#: [id number] Admission: 08/04/21 Attend Phys: Mart Gee DO Discharge: 08/22/21 Date of : 52 Report #: [id number] Denied SI, HI. No auditory or visual type hallucinations. Memory not formally tested. Insight and judgment fair to limited for both. Fund of knowledge average range. Prognosis for this patient is fair to guarded and will depend on the amount of support assistance she has as the son is the main person involved. Time spent on discharge activities today with no greater than 30 minutes. <ELECTRONICALLY SIGNED> By: Mart Gee DO 08/23/21 0926 2130 2240 Mart Gee DO /nt
== END 2021-08-22 11:23 | DRG 885 ==
LOC: SBH → EROBS 23:29 → SBH 23:34
PROVIDERS: Hospitalist; Internal Medicine; Nurse Practitioner Family; ADMIT Psychiatry & Neurology Psychiatry; ATTEND Psychiatry & Neurology Psychiatry
DX: F31.2 Bipolar disorder, current episode manic severe with psychotic features (principal); F41.9 Anxiety disorder, unspecified; E11.9 Type 2 diabetes mellitus without complications; J44.9 Chronic obstructive pulmonary disease, unspecified; D64.9 Anemia, unspecified; R39.81 Functional urinary incontinence; R26.89 Other abnormalities of gait and mobility; I10 Essential (primary) hypertension; Z20.822 Contact with and (suspected) exposure to COVID-19; E78.5 Hyperlipidemia, unspecified; I25.10 Atherosclerotic heart disease of native coronary artery without angina pectoris; M06.9 Rheumatoid arthritis, unspecified; R58 Hemorrhage, not elsewhere classified; G31.84 Mild cognitive impairment of uncertain or unknown etiology; Z88.0 Allergy status to penicillin; Z88.8 Allergy status to other drugs, medicaments and biological substances; Z82.49 Family history of ischemic heart disease and other diseases of the circulatory system; Z82.5 Family history of asthma and other chronic lower respiratory diseases; Z90.49 Acquired absence of other specified parts of digestive tract; Z28.21 Immunization not carried out because of patient refusal
CPT/HCPCS: 10880